=== PATIENT | male | born 1980 | race African-American/Black ===

== ENCOUNTER 2017-12-20 13:39 | Emergency (ER) | payer SELFPAY ==
[~2017-12-20] VITALS: Ht 177.8 cm; Wt 177.3 kg
[2017-12-20 13:55] VITALS: TEMP 98.8
[2017-12-20 14:20] LABS: COLLECTION METHOD CLEAN CATCH
[2017-12-20 14:24] LABS: BASO % 0.6 % (0.0-2.0); EOS # 0.2 (0.0-0.7); EOS % 2.9 % (0-4.0); GRAN # 4.1 (1.4-6.5); GRAN % 59.5 % (42.2-75.2); HEMATOCRIT 44.3 % (42.0-52.0); HEMOGLOBIN 14.2 g/dl (13.5-18.0); LYMPH % 28.8 % (20.0-51.0); MEAN CELL VOLUME 84 fl (80.0-100.0); MEAN CORPUSCULAR HEMOGLOBIN 27 pg (27.0-31.0); MEAN CORPUSCULAR HGB CONC 32 g/dl (33.0-37.0); MONO # 0.5 (0.1-0.6); PLATELET COUNT 230 K/mm3 (130-400); RED BLOOD COUNT 5.25 M/mm3 (4.20-5.60); REDCELL DISTRIBUTION WIDTH-CV 15.9 % (11.5-14.5)
[2017-12-20 14:28] LABS: MUCOUS Present /lpf; PH 5 (5-8); URINE APPEARANCE Clear; URINE BACTERIA None Seen /hpf; URINE BILIRUBIN Negative (NEGATIVE); URINE BLOOD Negative (NEGATIVE); URINE COLOR Yellow; URINE GLUCOSE Negative (NEGATIVE); URINE KETONE Negative (NEGATIVE); URINE LEUKOCYTE ESTERASE Trace (NEGATIVE); URINE NITRATE Negative (NEGATIVE); URINE PROTEIN(semi-quant) Negative (NEGATIVE); URINE RBC 0-2 /hpf
[2017-12-20 14:36] LABS: TRICYCLIC ANTIDEPRESS URINE NEGATIVE
[2017-12-20 14:45] LABS: ALANINE AMINOTRANSFERASE 31 U/L (21-72); ALBUMIN 3.8 gm/dL (3.5-5.0); ALKALINE PHOSPHATASE 105 U/L (50-136); ANION GAP 12 mmol/L (7-16); AST,SGOT 24 U/L (15-37); BILIRUBIN,TOTAL 0.5 mg/dL (0.0-1.0); BLOOD UREA NITROGEN 8 mg/dL (9-20); CARBON DIOXIDE 24 mmol/L (22-30); CHLORIDE 107 mmol/L (98-107); CREATININE, serum 0.97 mg/dL (0.66-1.25); GLUCOSE 106 mg/dL (74-106); POTASSIUM 3.9 mmol/L (3.4-5.0); SODIUM 143 mmol/L (137-145); TOTAL PROTEIN 7.6 gm/dL (6.4-8.2)
[2017-12-20 14:46] LABS: ACETAMINOPHEN < 10 ug/mL (10-30); ALCOHOL(ethanol),MEDICAL < 10 mg/dL; SALICYLATE < 1.0 mg/dL
[2017-12-21 01:30] VITALS: BP 158/79
[2017-12-21 02:13] VITALS: PULSE 77
== END 2017-12-21 02:32 ==
LOC: COL.ER 13:39
PROVIDERS: Emergency Medicine
DX: R45.851 Suicidal ideations (principal); F32.9 Major depressive disorder, single episode, unspecified; I10 Essential (primary) hypertension; F15.10 Other stimulant abuse, uncomplicated; F12.10 Cannabis abuse, uncomplicated; F17.210 Nicotine dependence, cigarettes, uncomplicated

== ENCOUNTER 2018-03-24 13:13 | Emergency (ER) | payer SELFPAY ==
[~2018-03-24] VITALS: Ht 177.8 cm; Wt 168.2 kg
[2018-03-24 13:20] VITALS: TEMP 98.1
[2018-03-24 13:59] LABS: BASO % 0.6 % (0.0-2.0); EOS # 0.1 (0.0-0.7); EOS % 1.3 % (0-4.0); GRAN # 3.7 (1.4-6.5); GRAN % 59.1 % (42.2-75.2); HEMATOCRIT 44.1 % (42.0-52.0); HEMOGLOBIN 14.2 g/dl (13.5-18.0); LYMPH # 1.7 (1.2-3.4); LYMPH % 27.4 % (20.0-51.0); MEAN CELL VOLUME 85 fl (80.0-100.0); MEAN CORPUSCULAR HEMOGLOBIN 27 pg (27.0-31.0); MEAN CORPUSCULAR HGB CONC 32 g/dl (33.0-37.0); MEAN PLATELET VOLUME 10.4 fl (7.4-10.4); MONO # 0.6 (0.1-0.6); MONO % 10.3 % (1.7-9.3); PLATELET COUNT 254 K/mm3 (130-400); RED BLOOD COUNT 5.18 M/mm3 (4.20-5.60); REDCELL DISTRIBUTION WIDTH-CV 15.6 % (11.5-14.5)
[2018-03-24 14:26] LABS: ALANINE AMINOTRANSFERASE 44 U/L (21-72); ALBUMIN 4.1 gm/dL (3.5-5.0); ALKALINE PHOSPHATASE 121 U/L (50-136); ANION GAP 12 mmol/L (7-16); AST,SGOT 43 U/L (15-37); BILIRUBIN,TOTAL 0.9 mg/dL (0.0-1.0); BLOOD UREA NITROGEN 14 mg/dL (9-20); CALCIUM 9.2 mg/dL (8.4-10.2); CARBON DIOXIDE 23 mmol/L (22-30); CHLORIDE 105 mmol/L (98-107); GLUCOSE 92 mg/dL (74-106); POTASSIUM 3.5 mmol/L (3.4-5.0); SODIUM 140 mmol/L (137-145); TOTAL PROTEIN 7.9 gm/dL (6.4-8.2)
[2018-03-24 14:27] LABS: ACETAMINOPHEN < 10 ug/mL (10-30); ALCOHOL(ethanol),MEDICAL < 10 mg/dL; SALICYLATE < 1.0 mg/dL
[2018-03-24 14:35] LABS: COLLECTION METHOD CLEAN CATCH
[2018-03-24 14:50] LABS: MUCOUS Present /lpf; PH 5 (5-8); URINE APPEARANCE Hazy; URINE BACTERIA Rare /hpf; URINE BILIRUBIN Negative (NEGATIVE); URINE BLOOD Negative (NEGATIVE); URINE COLOR Amber; URINE GLUCOSE Negative (NEGATIVE); URINE KETONE 1+ (NEGATIVE); URINE LEUKOCYTE ESTERASE 1+ (NEGATIVE); URINE NITRATE Negative (NEGATIVE); URINE PROTEIN(semi-quant) 1+ (NEGATIVE); URINE UROBILINOGEN >=4.0 mg/dL (NEGATIVE)
[2018-03-24 14:58] LABS: TRICYCLIC ANTIDEPRESS URINE NEGATIVE
[2018-03-24 18:43] VITALS: BP 127/64
[2018-03-25 00:22] VITALS: PULSE 85
== END 2018-03-25 00:25 ==
LOC: COL.ER 13:13
PROVIDERS: Family Medicine
DX: F32.9 Major depressive disorder, single episode, unspecified (principal)

== ENCOUNTER 2019-02-21 13:36 | Emergency (ER) | payer SELFPAY ==
[~2019-02-21] VITALS: Ht 177.8 cm; Wt 159.1 kg
[2019-02-21 13:57] VITALS: TEMP 98.3
[2019-02-21 14:18] LABS: BASO % 0.7 % (0.0-2.0); EOS % 0.7 % (0-4.0); GRAN # 3.2 (1.4-6.5); GRAN % 57.7 % (42.2-75.2); HEMATOCRIT 44.3 % (42.0-52.0); HEMOGLOBIN 13.8 g/dl (13.5-18.0); LYMPH # 1.9 (1.2-3.4); LYMPH % 33.8 % (20.0-51.0); MEAN CELL VOLUME 85 fl (80.0-100.0); MEAN CORPUSCULAR HEMOGLOBIN 26 pg (27.0-31.0); MEAN CORPUSCULAR HGB CONC 31 g/dl (33.0-37.0); MEAN PLATELET VOLUME 9.4 fl (7.4-10.4); MONO # 0.3 (0.1-0.6); PLATELET COUNT 275 K/mm3 (130-400); RED BLOOD COUNT 5.24 M/mm3 (4.20-5.60); REDCELL DISTRIBUTION WIDTH-CV 14.9 % (11.5-14.5)
[2019-02-21 14:40] LABS: ALANINE AMINOTRANSFERASE 32 U/L (21-72); ALKALINE PHOSPHATASE 115 U/L (50-136); ANION GAP 9 mmol/L (7-16); AST,SGOT 51 U/L (15-37); BILIRUBIN,TOTAL 0.4 mg/dL (0.0-1.0); BLOOD UREA NITROGEN 11 mg/dL (9-20); CALCIUM 9.2 mg/dL (8.4-10.2); CARBON DIOXIDE 27 mmol/L (22-30); CHLORIDE 107 mmol/L (98-107); CREATININE, serum 1.21 (0.66-1.25); GLUCOSE 95 mg/dL (74-106); POTASSIUM 4.2 mmol/L (3.4-5.0); SODIUM 143 mmol/L (137-145)
[2019-02-21 14:42] LABS: ACETAMINOPHEN < 10 ug/mL (10-30); ALCOHOL(ethanol),MEDICAL < 10 mg/dL; SALICYLATE < 1.0 mg/dL
[2019-02-21 14:48] LABS: TRICYCLIC ANTIDEPRESS URINE NEGATIVE
[2019-02-22 04:36] VITALS: BP 126/98; PULSE 78
== END 2019-02-22 04:43 ==
LOC: COL.ER 13:36
PROVIDERS: Emergency Medicine
DX: R45.851 Suicidal ideations (principal); F32.9 Major depressive disorder, single episode, unspecified; F41.9 Anxiety disorder, unspecified; F43.10 Post-traumatic stress disorder, unspecified; F17.210 Nicotine dependence, cigarettes, uncomplicated; F12.90 Cannabis use, unspecified, uncomplicated

== ENCOUNTER 2021-08-06 09:03 | Emergency (ER) | payer SELFPAY ==
[~2021-08-06] VITALS: Ht 175.3 cm; Wt 181.8 kg
[2021-08-06] MEDS ORDERED: ABILIFY20 MG PO (09:32)
[2021-08-06] MEDS ORDERED: DESYREL 50MG50 MG PO (09:33)
[2021-08-06] MEDS ORDERED: NORVASC 10MG10 MG PO (09:33)
[2021-08-06] MEDS ORDERED: SEROQUEL 1100 MG/TAB PO (09:34)
[2021-08-06 10:06] LABS: COLLECTION METHOD CLEAN CATCH
[2021-08-06 10:26] LABS: MUCOUS Present (NOT PRESENT); PH 5 (5-8); SQUAMOUS EPITHELIAL 0-2 /hpf (0-10); URINE APPEARANCE Clear (CLEAR/HAZY); URINE BACTERIA None Seen (NONE SEEN); URINE BILIRUBIN Negative (NEGATIVE); URINE BLOOD Negative (NEGATIVE); URINE COLOR Yellow (YELLOW); URINE GLUCOSE Negative (NEGATIVE); URINE KETONE Negative (NEGATIVE); URINE LEUKOCYTE ESTERASE Trace (NEGATIVE); URINE NITRATE Negative (NEGATIVE); URINE PROTEIN(semi-quant) Negative (NEGATIVE); URINE RBC 0-2 /hpf (0-2); URINE UROBILINOGEN Negative (NEGATIVE)
[2021-08-06 10:31] LABS: TRICYCLIC ANTIDEPRESS URINE NEGATIVE
[2021-08-06 11:23] LABS: BASO # 0.1 K/mm3 (0.0-0.2); BASO % 1.1 % (0.0-2.0); EOS # 0.1 K/mm3 (0.0-0.7); EOS % 2.4 % (0-4.0); GRAN # 2.2 K/mm3 (1.4-6.5); GRAN % 48.7 % (42.2-75.2); HEMATOCRIT 40.5 % (42.0-52.0); LYMPH # 1.8 K/mm3 (1.2-3.4); LYMPH % 38.7 % (20.0-51.0); MEAN CELL VOLUME 82 fl (80.0-100.0); MEAN CORPUSCULAR HEMOGLOBIN 24 pg (27.0-31.0); MEAN CORPUSCULAR HGB CONC 30 g/dl (33.0-37.0); MONO # 0.4 K/mm3 (0.1-0.6); MONO % 8.2 % (1.7-9.3); PLATELET COUNT 240 K/mm3 (130-400); RED BLOOD COUNT 4.97 M/mm3 (4.20-5.60); REDCELL DISTRIBUTION WIDTH-CV 17.5 % (11.5-14.5)
[2021-08-06 11:39] LABS: ACETAMINOPHEN < 1.0 ug/mL (10-30); ALANINE AMINOTRANSFERASE 23 U/L (0-55); ALBUMIN 3.7 gm/dL (3.5-5.0); ALCOHOL(ethanol),MEDICAL < 10 mg/dL (0-10); ALKALINE PHOSPHATASE 101 U/L (40-150); ANION GAP 8 mmol/L (7-16); AST,SGOT 29 U/L (5-34); BILIRUBIN,TOTAL 0.3 mg/dL (0.2-1.2); BLOOD UREA NITROGEN 10 mg/dL (9-21); CALCIUM 8.8 mg/dL (8.4-10.2); CARBON DIOXIDE 24 mmol/L (22-29); CHLORIDE 109 mmol/L (98-107); CREATININE, serum 1.06 mg/dL (0.72-1.25); GLUCOSE 92 mg/dL (70-99); SALICYLATE < 5.0 mg/dL (15.0-30.0); SODIUM 141 mmol/L (136-145); TOTAL PROTEIN 7.3 gm/dL (6.2-8.1)
[2021-08-06 12:02] LABS: TROPONIN-I < 0.010 ng/mL (0.00-0.033); TSH w REFLEX 1.768 uIU/mL (0.350-4.940)
[2021-08-06 14:00] VITALS: BP 136/64; PULSE 78; TEMP 97.7
--- NOTE | 2021-08-06 15:26 | NUR ---
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
== END 2021-08-06 14:20 | disposition home or self-care (01) ==
LOC: COL.ER
PROVIDERS: Nurse Practitioner Primary Care
DX: F32.A Depression, unspecified (principal); F17.210 Nicotine dependence, cigarettes, uncomplicated; Z79.899 Other long term (current) drug therapy